=== PATIENT | male | born 1955 | race Caucasian/White ===

== ENCOUNTER 2024-12-26 21:36 | Observation (INO) ==
[2024-12-26 21:59] LABS: BASOPHILS # (AUTO) 0.1 X10^3/uL (0.0-0.1); BASOPHILS % (AUTO) 0.9 % (0.2-1.0); EOSINOPHILS # (AUTO) 0.3 x10^3/uL (0.0-0.2); EOSINOPHILS % (AUTO) 3.5 % (0.9-2.9); HEMATOCRIT 41.9 % (42.0-54.0); HEMOGLOBIN 14.7 g/dL (13.5-18.0); LYMPHOCYTES # (AUTO) 1.8 X10^3/uL (1.3-2.9); LYMPHOCYTES % (AUTO) 24.5 % (21.0-51.0); MEAN CORPUSCULAR HEMOGLOBIN 31.2 pg (27.0-34.0); MEAN CORPUSCULAR HGB CONC 35.2 g/dL (33.0-35.0); MEAN CORPUSCULAR VOLUME 88.8 fL (80.0-100.0); MEAN PLATELET VOLUME 8.5 fL (7.4-11.0); MONOCYTES # (AUTO) 0.7 x10^3/uL (0.3-0.8); MONOCYTES % (AUTO) 9.4 % (0.0-13.0); NEUTROPHILS # (AUTO) 4.5 x10^3/uL (2.2-4.8); NEUTROPHILS % (AUTO) 61.7 % (42.0-75.0); PLATELET COUNT 205 X10^3/uL (150.0-450.0); RED BLOOD COUNT 4.72 X10^6/uL (4.7-6.0); RED CELL DISTRIBUTION WIDTH 13.8 % (11.6-16.5); WHITE BLOOD COUNT 7.3 X10^3/uL (3.6-10.0)
[2024-12-26 22:03] LABS: INR 1.02 (0.8-1.3)
--- NOTE | 2024-12-26 22:10 | TELESTROKE ---
[facility] Consult Date of Consult Date of Exam: 12/26/24 Time of Arrival to the ED: 21:36 Allergies Allergies Allergy/AdvReac Type Severity Reaction Status Date / Time meperidine [From Demerol] Allergy Verified 12/26/24 21:50 History of Present Illness History of Present Illness: [facility] Consult Services Patient Name:BENNETT Dasilva Date of :1955 Date of Service:12/26/2024 21:38:44 Diagnosis:R47.81 - Slurred speech Impression: 69 yo M who presents with confusion, weakness and slurred speech. HCT negative for acute abnormalities. I discussed with family that patient's current symptoms are somewhat nonspecific (confusion without aphasia and slurred speech) but that nurse had noted left side a little weaker than right side earlier. Also having trouble walking. With this, I discussed with them TNK/thrombolytics as possible treatment for patient and after risks/benefits discussion concerning TNK - family and patient have declined medication at this time which I told them is reasonable. Would admit for further workup and hold on restoril (family indicates the symptoms have seemed to come on at night after taking medication). Full recommendations as follows: Our recommendations are outlined below. Recommendations: Stroke/Telemetry Floor Neuro Checks Bedside Swallow Eval -obtain MRI brain w/o contrast and MRA head/neck (routine) --if + for acute stroke = will need full stroke workup (including lipid panel, A1c, TTE, antiplatelets/statin, etc) --allow for permissive HTN up to 180 systolic while MRI brain pending --if MRI negative for stroke = goal of normotension per primary team -cont on asa 81 mg and plavix po qdaily for now -obtain B12, folate, TSH, ammonia -obtain UA, CXR -obtain UDS, Etoh Level -obtain CMP, CBC if not already done -Delirium precautions: Blinds open during the day, closed at night, frequent reorientation, minimize nighttime interruptions -When possible, avoid benzodiazepines, opioid pain medications, and anticholinergic medications (also would avoid restoril) -dvt ppx per primary team -PT/OT/ST consults - inpatient rehab if recommended -call neurology immediately with significant change in exam Sign Out: Discussed with Emergency Department Provider Advanced Imaging:Advanced Imaging Deferred because: NIHSS of 1 only currently Metrics: Last Known Well: 12/26/2024 19:30:00 Dispatch Time: 12/26/2024 21:38:43 Arrival Time: 12/26/2024 21:36:00 Initial Response Time: 12/26/2024 21:47:29Symptoms: confusion, weakness, slurred speech. Initial patient interaction: 12/26/2024 21:50:13 NIHSS Assessment Completed: 12/26/2024 21:58:40Patient is not a candidate for Thrombolytic. Thrombolytic Medical Decision: 12/26/2024 22:00:29Patient was not deemed candidate for Thrombolytic because of following reasons: Patient/Family declined . I personally Reviewed the CT Head and it Showed Primary Provider Notified of Diagnostic Impression and Management Plan on: 12/26/2024 22:07:12 History of Present Illness:Patient is a 69 year old Male. Patient was brought by private transportation with symptoms of confusion, weakness, slurred speech. 69 yo M who presents with confusion, weakness and slurred speech. Per report, patient has had several episodes of confusion with weakness in the last few weeks. Tonight is the worst, confusion/weakness and trouble walking. Walking normally at 730, got confused/weak starting at 830 pm. Brought to ED by family. In ED seemed to be weaker on left side, slurred speech noted and also trouble walking. Patient denies slurred speech - states he doesn't notice it. Does state he has dizziness (started with other symptoms at 830 pm). Denies weakness, numbness. States he is having trouble remembering stuff (his words). Has gotten new glasses and has changed his vision. Denies headache. Past Medical History: Hypertension Hyperlipidemia Coronary Artery Disease There is no history of Diabetes Mellitus There is no history of Atrial Fibrillation There is no history of Stroke Other PMH: hx of prostate cancer Medications: No Anticoagulant use Antiplatelet use:Yesasa and plavix Reviewed EMR for current medications Allergies: Reviewed Social History: Smoking: No Alcohol Use: No Family History: There is no family history of premature cerebrovascular disease pertinent to this consultation ROS : 14 Points Review of Systems was performed and was negative except mentioned in HPI. Examination: BP(137/86),Pulse(62), 1A: Level of Consciousness - Alert; keenly responsive+ 0 1B: Ask Month and Age - Both Questions Right+ 0 1C: Blink Eyes & Squeeze Hands - Performs Both Tasks+ 0 2: Test Horizontal Extraocular Movements - Normal+ 0 3: Test Visual [place] - No Visual Loss+ 0 4: Test Facial Palsy (Use Grimace if Obtunded) - Normal symmetry+ 0 5A: Test Left Arm Motor Drift - No Drift for 10 Seconds+ 0 5B: Test Right Arm Motor Drift - No Drift for 10 Seconds+ 0 6A: Test Left Leg Motor Drift - No Drift for 5 Seconds+ 0 6B: Test Right Leg Motor Drift - No Drift for 5 Seconds+ 0 7: Test Limb Ataxia (FNF/Heel-Ochoa) - No Ataxia+ 0 8: Test Sensation - Normal; No sensory loss+ 0 9: Test Language/Aphasia - Normal; No aphasia+ 0 10: Test Dysarthria - Mild-Moderate Dysarthria: Slurring but can be understood+ 1 11: Test Extinction/Inattention - No abnormality+ 0 NIHSS Score:1 Pre-Morbid Modified Borden Scale:0 Points = No symptoms at all Spoke with :ED physician This consult was conducted in real time using interactive audio and video technology. Patient was informed of the technology being used for this visit and agreed to proceed. Patient located in hospital and provider located at home/office setting. Patient is being evaluated for possible acute neurologic impairment and high probability of imminent or life-threatening deterioration. I spent total of 30 minutes providing care to this patient, including time for face to face visit via telemedicine, review of medical records, imaging studies and discussion of findings with providers, the patient and/or family. Dr Edu Coe [facility] For Inpatient follow-up with [facility] physician please call [facility] at . As we are not an outpatient service for any post hospital discharge needs please contact the hospital for assistance. If you have any questions for the [facility] physicians or need to reconsult for clinical or diagnostic changes please contact us via [facility] at . Medical Decision Making 12/26/24 21:45 12/26/24 21:45 Labs: Laboratory Results - last 24 hr 12/26/24 21:45 WBC 7.3 RBC 4.72 Hgb 14.7 Hct 41.9 L MCV 88.8 MCH 31.2 MCHC 35.2 H RDW 13.8 Plt Count 205 MPV 8.5 Neut % (Auto) 61.7 Lymph % (Auto) 24.5 [place] % (Auto) 9.4 Eos % (Auto) 3.5 H Baso % (Auto) 0.9 Neut # (Auto) 4.5 Lymph # (Auto) 1.8 [place] # (Auto) 0.7 Eos # (Auto) 0.3 H Baso # (Auto) 0.1 Absolute Nucleated RBC 0.2
--- NOTE | 2024-12-26 22:15 | EKG ---
Test Reason : AMS Blood Pressure : */* mmHG Vent. Rate : 63 BPM Atrial Rate : 63 BPM P-R Int : 174 ms QRS Dur : 84 ms QT Int : 410 ms P-R-T Axes : 58 23 48 degrees QTc Int : 419 ms Normal sinus rhythm Normal ECG No previous ECGs available Confirmed by Justo Reynolds MD ([id number]) on 12/27/2024 5:56:38 AM Referred By: Confirmed By: Justo Reynolds MD
[2024-12-26 22:19] LABS: ALANINE AMINOTRANSFERASE 26 Units/L (12-78); ALBUMIN 3.9 g/dL (3.4-5.0); ALKALINE PHOSPHATASE 91 Units/L (46-116); ASPARTATE AMINO TRANSFERASE 17 Units/L (15-37); BLOOD UREA NITROGEN 17 mg/dL (7-18); CALCIUM 9.4 mg/dL (8.5-10.1); CARBON DIOXIDE 30.4 mmol/L (21-32); CHLORIDE 101 mmol/L (98-107); CHOL/HDL RATIO 3.2 (0.0-5.0); CHOLESTEROL 105 mg/dL (0-200); COR NA(FOR HYPERGLY) 141 mmol/L (136-145); CREATINE KINASE 89 Units/L (39-308); GLUCOSE 120 mg/dL (65-99); HDL CHOLESTEROL 33 mg/dL (40-60); POTASSIUM 3.7 mmol/L (3.5-5.1); SODIUM 141 mmol/L (136-145); TOTAL PROTEIN 7.5 g/dL (6.4-8.2); TRIGLYCERIDES 370 mg/dL (0-150); eGFR NON BLACK RACES 49 (>60)
--- NOTE | 2024-12-26 22:37 | CT ---
EXAM: BRAIN W/O CON HISTORY: AMS; COMPARISON: None. TECHNIQUE: Axial non-contrast images of the head with coronal and sagittal reformats. Radiation dose: 841.24 mGy-cm total DLP FINDINGS: No abnormal areas of acute attenuation in the brain parenchyma. Urbano-white differentiation remains intact. No intracranial, extra-axial, fluid collection. No hemorrhage. No mass, mass effect or midline shift. No ventriculomegaly. No acute fracture. Sinuses are well aerated. Mastoid air cells are well aerated. Globes and intraorbital contents are unremarkable. IMPRESSION: No acute intracranial abnormality identified. THIS IS AN ELECTRONICALLY VERIFIED FINAL REPORT 12/26/2024 10:21 PM - Electronically signed by Jonh Keith MD
[2024-12-26 22:43] LABS: BILIRUBIN,URINE NEGATIVE (NEGATIVE); BLOOD/HEMOGLOBIN,URINE 3+ (NEGATIVE); GLUCOSE, URINE NEGATIVE (NEGATIVE); KETONES,URINE NEGATIVE (NEGATIVE); LEUKOCYTE ESTERASE ,URINE 1+ (NEGATIVE); NITRITES,URINE NEGATIVE (NEGATIVE); PROTEIN,URINE 1+ (NEGATIVE); UROBILINOGEN,URINE NORMAL (NORMAL)
[2024-12-26 22:51] LABS: APPEARANCE,URINE CLEAR (CLEAR); COLOR,URINE YELLOW (YELLOW)
[2024-12-26 22:52] LABS: BACTERIA,URINE TRACE /HPF (NEGATIVE); SQUAMOUS EPITHELIAL CELL,UR RARE /HPF (NEGATIVE); YEAST,URINE RARE /HPF (NEGATIVE)
--- NOTE | 2024-12-27 | RAD ---
EXAM: CHEST, 1 VIEW HISTORY: AMS; COMPARISON: No relevant prior studies available. TECHNIQUE: Chest radiographic imaging, AP portable projection, 1 image FINDINGS: No cardiomegaly. No focal airspace disease. No pleural effusion. No pneumothorax. No acute osseous abnormality. IMPRESSION: No imaging findings of acute cardiopulmonary disease. THIS IS AN ELECTRONICALLY VERIFIED FINAL REPORT 12/26/2024 11:57 PM - Electronically signed by Jonh Keith MD
--- NOTE | 2024-12-27 00:33 | DR.AMS ---
HPI Time Seen Time Seen by Provider: 12/26/24 22:07 HPI Comment HPI Comment: Patient brought in for altered mental status and slurred speech. Patient had taken temazepam on an empty stomach for sleep and after 20 to 30 minutes started getting a little bit of slurred speech and a little bit of confusion. Patient was evaluated by teleneurology and no acute stroke was found. PMH PMH Past Medical History: Coronary Artery Disease and Hypertension Past Surgical History: Yes Social History Do you use any recreational Drugs:: No ROS Review of Systems Constitutional: No Symptoms Reported Eyes: No Symptoms Reported ENTM: No Symptoms Reported Respiratoy: No Symptoms Reported Cardiovascular: No Symptoms Reported Gastrointestinal/Abdominal: No Symptoms Reported Genitourinary: No Symptoms Reported Neurological: See HPI and Speech Problem Musculoskeletal: No Symptoms Reported Integumentary: No Symptoms Reported Hematologic/Lymphatic: No Symptoms Reported Endocrine: No Symptoms Reported Psychiatric: No Symptoms Reported All Other Systems: Reviewed and Negative PE Vitals Vital Signs: Temp Pulse Resp BP Pulse Ox 12/27/24 00:30 126/72 12/27/24 00:30 54 L 15 97 12/27/24 00:15 126/67 12/27/24 00:15 53 L 15 98 12/27/24 00:09 55 L 14 97 12/27/24 00:00 127/67 12/26/24 23:58 53 L 15 97 12/26/24 23:45 55 L 17 97 12/26/24 23:45 129/70 12/26/24 23:30 129/65 12/26/24 23:30 129/65 12/26/24 23:30 129/65 12/26/24 23:30 55 L 13 96 12/26/24 23:15 141/76 12/26/24 23:15 55 L 15 97 12/26/24 23:00 139/76 12/26/24 23:00 59 L 20 97 12/26/24 22:45 58 L 16 96 12/26/24 22:33 65 18 97 12/26/24 22:15 61 17 12/26/24 22:11 63 24 12/26/24 21:46 63 20 97 12/26/24 21:46 143/99 12/26/24 21:46 143/99 12/26/24 21:46 143/99 12/26/24 21:45 64 18 97 12/26/24 21:40 65 21 12/26/24 21:36 147/72 12/26/24 21:36 147/72 12/26/24 22:09 98.0 F 68 20 147/ 98 General Limitations: Language Barrier General Appearance: Alert Head Head Exam: Normal Inspection Eyes Eye exam: Normal Appearance ENT ENT Exam: Normal Exam External Ear Exam: Normal External Inspection Nose Exam: Normal Nose Exam Mouth Exam: Normal Inspection Throat Exam: Normal Inspection Neck Neck Exam: Normal Inspection Chest Chest Inspection: Normal Inspection Respiratory Respiratory Exam: Normal Lung Sounds Bilat Cardiovascular Cardiovascular Exam: Regular Rate and Normal Rhythm Abdominal Exam Abdominal Exam: Normal Inspection, Normal Bowel Sounds and Soft Extremities Extremities Exam: Normal Inspection Back Back Exam: Normal Inspection Neurological Neurological Exam: Alert, CN II-XII Intact, Reflexes Normal and Other (Slightly confused with slightly slurred speech which improved through the night.); negative Motor Sensory Deficit Psychological Psychiatric Exam: Normal Affect and Normal Mood Skin Skin Exam: Warm, Dry, Intact and Normal Color COURSE Treatment Treatment: CT scan was negative. Chest x-ray negative. At this point suspect most likely side effect from temazepam. Teleneurology recommended MRI in the morning. Discussed results with patient and family and they are agreeable to admission. Consultation Called: 00:36 Consultation Comments: Discussed case with Dr. Coe from teleneurology. He recommends MRI and MRA in the morning. Discussed case with Dr. Greenwood she is agreeable to admission. [facility] Labs Reviewed 12/26/24 21:45 12/26/24 21:45 Laboratory: WBC 7.3 X10^3/uL (3.6-10.0) 12/26/24 21:45 RBC 4.72 X10^6/uL (4.7-6.0) 12/26/24 21:45 Hgb 14.7 g/dL (13.5-18.0) 12/26/24 21:45 Hct 41.9 % (42.0-54.0) L 12/26/24 21:45 MCV 88.8 fL (80.0-100.0) 12/26/24 21:45 MCH 31.2 pg (27.0-34.0) 12/26/24 21:45 MCHC 35.2 g/dL (33.0-35.0) H 12/26/24 21:45 RDW 13.8 % (11.6-16.5) 12/26/24 21:45 Plt Count 205 X10^3/uL (150.0-450.0) 12/26/24 21:45 MPV 8.5 fL (7.4-11.0) 12/26/24 21:45 Neut % (Auto) 61.7 % (42.0-75.0) 12/26/24 21:45 Lymph % (Auto) 24.5 % (21.0-51.0) 12/26/24 21:45 [place] % (Auto) 9.4 % (0.0-13.0) 12/26/24 21:45 Eos % (Auto) 3.5 % (0.9-2.9) H 12/26/24 21:45 Baso % (Auto) 0.9 % (0.2-1.0) 12/26/24 21:45 Neut # (Auto) 4.5 x10^3/uL (2.2-4.8) 12/26/24 21:45 Lymph # (Auto) 1.8 X10^3/uL (1.3-2.9) 12/26/24 21:45 [place] # (Auto) 0.7 x10^3/uL (0.3-0.8) 12/26/24 21:45 Eos # (Auto) 0.3 x10^3/uL (0.0-0.2) H 12/26/24 21:45 Baso # (Auto) 0.1 X10^3/uL (0.0-0.1) 12/26/24 21:45 Absolute Nucleated RBC 0.2 /100WBC 12/26/24 21:45 PT 13.6 SECONDS (11.8-14.3) 12/26/24 21:45 INR Target Range - 12/26/24 21:45 INR 1.02 (0.8-1.3) 12/26/24 21:45 APTT 31.5 SECONDS (22.9-36.5) 12/26/24 21:45 PTT Comment - 12/26/24 21:45 Fibrinogen 389 mg/dL (239-489) 12/26/24 21:45 Sodium 141 mmol/L (136-145) 12/26/24 21:45 Corrected Sodium 141 mmol/L (136-145) 12/26/24 21:45 Potassium 3.7 mmol/L (3.5-5.1) 12/26/24 21:45 Chloride 101 mmol/L (98-107) 12/26/24 21:45 Carbon Dioxide 30.4 mmol/L (21-32) 12/26/24 21:45 BUN 17 mg/dL (7-18) 12/26/24 21:45 Creatinine 1.50 mg/dL (0.70-1.30) H 12/26/24 21:45 Est GFR (MDRD) Af Amer 59 (>60) 12/26/24 21:45 Est GFR (MDRD) Non-Af 49 (>60) L 12/26/24 21:45 Glucose 120 mg/dL (65-99) H 12/26/24 21:45 Calcium 9.4 mg/dL (8.5-10.1) 12/26/24 21:45 Corrected Calcium TNP 12/26/24 21:45 Total Bilirubin 0.30 mg/dL (0.2-1.0) 12/26/24 21:45 AST 17 Units/L (15-37) 12/26/24 21:45 ALT 26 Units/L (12-78) 12/26/24 21:45 Alkaline Phosphatase 91 Units/L (46-116) 12/26/24 21:45 Creatine Kinase 89 Units/L (39-308) 12/26/24 21:45 Troponin I High Sens 4.0 ng/L (4.0-60.0) 12/26/24 23:43 Total Protein 7.5 g/dL (6.4-8.2) 12/26/24 21:45 Albumin 3.9 g/dL (3.4-5.0) 12/26/24 21:45 Globulin 3.6 g/dL (2.5-4.5) 12/26/24 21:45 Albumin/Globulin Ratio 1.1 Ratio (1.1-2.1) 12/26/24 21:45 Triglycerides 370 mg/dL (0-150) H 12/26/24 21:45 Cholesterol 105 mg/dL (0-200) 12/26/24 21:45 LDL Cholesterol, Calc -2 mg/dL (0-100) L 12/26/24 21:45 HDL Cholesterol 33 mg/dL (40-60) L 12/26/24 21: Cholesterol/HDL Ratio 3.2 (0.0-5.0) 12/26/24 21:45 Specimen Type Clean catch urine 12/26/24: Urine Color Yellow (YELLOW) 12/26/24: Urine Appearance Clear (CLEAR) 12/26/24: Urine pH 6.0 (5.0 - 8.0) 12/26/24: Ur Specific Horace 1.020 (1.000-1.030) 12/26/24: Urine Protein 1+ (NEGATIVE) 12/26/24: Urine Glucose (UA) Negative (NEGATIVE) 12/26/24: Urine Ketones Negative (NEGATIVE) 12/26/24: Urine Blood 3+ (NEGATIVE) 12/26/24: Urine Nitrite Negative (NEGATIVE) 12/26/24: Urine Bilirubin Negative (NEGATIVE) 12/26/24: Urine Urobilinogen Normal (NORMAL) 12/26/24: Ur Leukocyte Esterase 1+ (NEGATIVE) 12/26/24: Urine RBC 5-10 /HPF (0-3) A 12/26/24: Urine WBC 3-5 /HPF (0-5) 12/26/24: Ur Squamous Epith Cells Rare /HPF (NEGATIVE) 12/26/24: Urine Bacteria Trace /HPF (NEGATIVE) 12/26/24: Urine Yeast Rare /HPF (NEGATIVE) 12/26/24: Ur Culture Indicated? No/not indicated 12/26/24: Urine Opiates Screen Negative (NEG=<300) 12/26/24: Urine Methadone Screen Negative (NEG=<300) 12/26/24: Ur Barbiturates Screen Negative (NEG=<200) 12/26/24: Ur Phencyclidine Scrn Negative (NEG=<25) 12/26/24: Ur Amphetamines Screen Negative (NEG=<1000) 12/26/24: U Benzodiazepines Scrn Positive (NEG=<200) 04/17/25 22:34 Urine Cocaine Screen Negative (NEG=<300) 12/26/24 22:34 U Marijuana (THC) Screen Negative (NEG=<50) 12/26/24 22:34 Ethyl Alcohol mg/dL < 3 mg/dL (0-19.9) 12/26/24 21:45 Opioid Opioid Risk Tool Total: 0 Total Score Risk Category: Low Risk Copyright: [facility] predicting aberrant behaviors Discharge Plan Diagnosis Discharge Problem: Stroke-like symptom, Slurred speech, AMS (altered mental status) Discharge Plan Patient Disposition: ADMITTED INPATIENT Condition: Stable Prescriptions: No Action furosemide 40 mg Tablet 40 mg PO QDAY carvedilol 6.25 mg Tablet 6.25 mg PO BID Rx Instructions: must administer with a meal/food polyethylene glycol 3350 [Miralax] 17 gram Powder In Packet 17 g PO QDAY clopidogrel [Plavix] 75 mg Tablet 75 mg PO QDAY aspirin 81 mg Tablet,Delayed Release (Dr/Ec) 81 mg PO QDAY levothyroxine [Synthroid] 100 mcg Tablet 100 mcg PO QDAY famotidine [Pepcid] 20 mg Tablet 20 mg PO BID temazepam [Restoril] 30 mg Capsule 30 mg PO QHS PRN metformin 1,000 mg Tablet 1,000 mg PO BID losartan 25 mg Tablet 50 mg PO QPM ranolazine [Ranexa] 500 mg Tablet Extended Release 12 Hr 500 mg PO BID omega-3 fatty acids-fish oil [Fish Oil] 360-1,200 mg Capsule 2 cap PO QDAY potassium chloride 20 mEq Tablet Extended Release 20 meq PO QDAY Repatha SureClick 140 mg/mL Pen Injector 140 mg SUBCUT Q2W Health Concerns: Post Hospitalization: new medications and changes needed to prevent readmission or further decline. Pt educated and given instructions on all concerns. Plan of Treatment: Continue with present treatment and follow up plan. Pt is to keep follow up appointment as instructed and take medications as ordered. Orders to Discharge Patient Discharge Orders: Transfer (Routine); Ordered 12/27/24 Ordered By: Hiren Andrea Follow ups/Referrals Follow ups/Referrals: Tom Hunt [Primary Care Provider] - 3 days Instructions Stand Alone Forms: Find Help Web Site, Post Hospital Follow Up Care
[2024-12-27] MEDS ORDERED: CONSULT PHARMACY - POTASSIUM & MAGNESIUM XX SCH ×2 (01:00→08:00)
[2024-12-27] MEDS: K-DUR TAB 20 MEQ PO SCH ×2 (01:19→11:05)
[2024-12-27 02:16] VITALS: BMI 29.0
[2024-12-27 04:42] LABS: BASOPHILS % (AUTO) 0.3 % (0.2-1.0); EOSINOPHILS # (AUTO) 0.2 x10^3/uL (0.0-0.2); EOSINOPHILS % (AUTO) 3.4 % (0.9-2.9); HEMATOCRIT 39.3 % (42.0-54.0); HEMOGLOBIN 13.8 g/dL (13.5-18.0); LYMPHOCYTES # (AUTO) 1.8 X10^3/uL (1.3-2.9); LYMPHOCYTES % (AUTO) 28.2 % (21.0-51.0); MEAN CORPUSCULAR HEMOGLOBIN 31.2 pg (27.0-34.0); MEAN CORPUSCULAR HGB CONC 35.1 g/dL (33.0-35.0); MEAN CORPUSCULAR VOLUME 88.8 fL (80.0-100.0); MEAN PLATELET VOLUME 8.7 fL (7.4-11.0); MONOCYTES # (AUTO) 0.7 x10^3/uL (0.3-0.8); MONOCYTES % (AUTO) 11.7 % (0.0-13.0); NEUTROPHILS # (AUTO) 3.5 x10^3/uL (2.2-4.8); NEUTROPHILS % (AUTO) 56.4 % (42.0-75.0); PLATELET COUNT 185 X10^3/uL (150.0-450.0); RED BLOOD COUNT 4.42 X10^6/uL (4.7-6.0); RED CELL DISTRIBUTION WIDTH 13.8 % (11.6-16.5); WHITE BLOOD COUNT 6.3 X10^3/uL (3.6-10.0)
[2024-12-27 05:02] LABS: ALANINE AMINOTRANSFERASE 24 Units/L (12-78); ALBUMIN 3.4 g/dL (3.4-5.0); ALKALINE PHOSPHATASE 69 Units/L (46-116); ASPARTATE AMINO TRANSFERASE 15 Units/L (15-37); BLOOD UREA NITROGEN 21 mg/dL (7-18); CALCIUM 9.2 mg/dL (8.5-10.1); CARBON DIOXIDE 29.9 mmol/L (21-32); CHLORIDE 103 mmol/L (98-107); CREATININE 1.28 mg/dL (0.70-1.30); GLUCOSE 101 mg/dL (65-99); MAGNESIUM 1.9 mg/dL (2.0-2.9); POTASSIUM 4.2 mmol/L (3.5-5.1); SODIUM 140 mmol/L (136-145); TOTAL PROTEIN 6.8 g/dL (6.4-8.2); eGFR NON BLACK RACES 59 (>60)
[2024-12-27] MEDS ORDERED: NovoLIN R (or HumuLIN R) SUBCUT PRN (10:33)
[2024-12-27] MEDS ORDERED: GLUCOPHAGE ONE (10:40)
[2024-12-27] MEDS: GLUCOPHAGE PO SCH (11:05)
[2024-12-27] MEDS: PEPCID TAB 20 MG PO SCH (11:05)
[2024-12-27] MEDS: LASIX PO SCH (11:05)
[2024-12-27] MEDS: MAG-OX TAB PO SCH (11:05)
[2024-12-27] MEDS: ASPIRIN EC 81 MG PO SCH (11:05)
[2024-12-27] MEDS: MIRALAX POWDER (1 DOSE 17 G) PO SCH (11:05)
[2024-12-27] MEDS: SYNTHROID 100 mcg TAB PO SCH (11:06)
[2024-12-27] MEDS: COREG TAB 6.25 MG PO SCH (11:06)
[2024-12-27] MEDS: PLAVIX PO SCH (11:06)
[2024-12-27 12:51] LABS: BILIRUBIN,URINE NEGATIVE (NEGATIVE); BLOOD/HEMOGLOBIN,URINE 2+ (NEGATIVE); GLUCOSE, URINE NEGATIVE (NEGATIVE); KETONES,URINE NEGATIVE (NEGATIVE); LEUKOCYTE ESTERASE ,URINE 1+ (NEGATIVE); NITRITES,URINE NEGATIVE (NEGATIVE); PROTEIN,URINE NEGATIVE (NEGATIVE); UROBILINOGEN,URINE NORMAL (NORMAL)
[2024-12-27 12:56] VITALS: BP 174/77; PULSE 62; RESP 20; TEMP 97.8; O2SAT 96
[2024-12-27 12:58] LABS: APPEARANCE,URINE CLEAR (CLEAR); COLOR,URINE STRAW (YELLOW)
[2024-12-27 12:59] LABS: BACTERIA,URINE NEGATIVE /HPF (NEGATIVE); RBC,URINE 0-2 /HPF (0-3); SQUAMOUS EPITHELIAL CELL,UR RARE /HPF (NEGATIVE)
--- NOTE | 2024-12-27 13:18 | MRI ---
EXAM: MRI BRAIN WITHOUT CONTRAST HISTORY: AMS ; COMPARISON: CT dated 12/26/2024. TECHNIQUE: Multiplanar multisequence MRI of the brain was performed without intravenous contrast. FINDINGS: No areas of restricted diffusion. No acute intracranial hemorrhage or extra-axial fluid collection. No mass effect or midline shift. Mild cerebral atrophy. Normal cortical and white matter signal. Major intracranial flow voids are preserved. Mild paranasal sinus mucosal thickening. Trace right mastoid effusion. IMPRESSION: No acute intracranial abnormality. THIS IS AN ELECTRONICALLY VERIFIED FINAL REPORT 12/27/2024 1:15 PM - Electronically signed by Juan Blanchard MD
[2024-12-27] MEDS ORDERED: SNACK - Diabetic Appropriate PO SCH (20:00)
[2024-12-27] MEDS ORDERED: COZAAR PO SCH (21:00)
[2024-12-27] MEDS ORDERED: RANEXA PO SCH (21:00)
[2024-12-27] MEDS ORDERED: RESTORIL CAP 15 MG PO PRN (21:00)
--- NOTE | 2025-01-06 08:10 | DR.SSS ---
SHORT STAY SUMMARY Admission Date Date of Admission: 12/26/24 Discharge Date Discharge Date: 12/27/24 Admission Diagnoses Admission Diagnoses: Altered mental status Chief Complaint Chief Complaint: altered mental status slurred speech History of Present Illness History of Present Illness: Patient is a 69 year old male admitted for altered mental status, confusion, and slurred speech. Patient did take a temazepam on an empty stomach and then was noted to have slurred speech and a little bit of confusion. Patient was evaluated by teleneurology and no acute stroke was found. Labs/imaging: CT head was obtained that was negative for any intracranial findings. Chest x-ray negative. Labs appropriate, UDS positive benzodiazepine. Patient symptoms had resolved. On exam patient back to baseline without any complaints. Alert and oriented. No neurological deficits. Symptoms likely from temazepam. Teleneurology recommended MRI that was also negative. Patient discharged in stable condition. Instructed to follow up with pcp in 1 week. Past Medical History Past Medical History: Coronary Artery Disease and Hypertension Past Surgical History Surgical History: Angioplasty/Stents, Thyroidectomy and Other Allergies Allergies Allergy/AdvReac Type Severity Reaction Status Date / Time meperidine [From Demerol] Allergy Verified 12/26/24 21:50 Medications Home Medications: meperidine [From Demerol] Allergy (Verified 12/26/24 21:50) CONTINUE taking the following medications aspirin 81 mg tablet,delayed release 81 mg PO QDAY 12/26/24 [History] carvedilol 6.25 mg tablet 6.25 mg PO BID 12/26/24 [History] clopidogrel 75 mg tablet (Plavix) 75 mg PO QDAY 12/26/24 [History] evolocumab 140 mg/mL subcutaneous pen injector (Repatha SureClick) 140 mg subcut Q2W 12/26/24 [History] famotidine 20 mg tablet (Pepcid) 20 mg PO BID 12/26/24 [History] furosemide 40 mg tablet 40 mg PO QDAY 12/26/24 [History] levothyroxine 100 mcg tablet (Synthroid) 100 mcg PO QDAY 12/26/24 [History] losartan 25 mg tablet 50 mg PO QPM 12/26/24 [History] metformin 1,000 mg tablet 1,000 mg PO BID 12/26/24 [History] omega-3 fatty acids-fish oil 360 mg-1,200 mg capsule (Fish Oil) 2 cap PO QDAY 12/26/24 [History] polyethylene glycol 3350 17 gram oral powder packet (Miralax) 17 g PO QDAY 12/26/24 [History] potassium chloride 20 mEq tablet,extended release 20 meq PO QDAY 12/26/24 [History] ranolazine 500 mg tablet,extended release,12 hr 500 mg PO BID 12/26/24 [History] temazepam 30 mg capsule (Restoril) 30 mg PO QHS PRN 12/26/24 [History] Social History Alcohol Use: None Drug Use: None Review of Systems Constitutional: No Symptoms Reported Eyes: No Symptoms Reported ENT: No Symptoms Reported Respiratory: No Symptoms Reported Cardiovascular: No Symptoms Reported Gastrointestinal: No Symptoms Reported Genitourinary: No Symptoms Reported Musculoskeletal: No Symptoms Reported Skin: No Symptoms Reported Neurological: Change in Speech Physical Exam Vital Signs: Last Vital Signs Temp 97.8 F 12/27/24 12:00 Pulse 62 12/27/24 12:00 Resp 20 12/27/24 12:00 BP 174/77 12/27/24 12:00 Pulse Ox 96 12/27/24 12:00 O2 Del Method Room Air 12/27/24 12:00 Oriented: Normal Eyes: Normal Ear: Normal Nose: Normal Respiratory: Clear Throughout Cardiovascular: Normal : Normal Auscultation: Bowel Sounds: Normal Palpation: Normal Tenderness: Normal Skin: Normal Musculoskeletal: Normal Psychiatric: Normal Mood Description: Calm Affect: Normal Speech Pattern: Clear Labs Labs: Laboratory Last Values WBC 6.3 X10^3/uL (3.6-10.0) 12/27/24 04:10 RBC 4.42 X10^6/uL (4.7-6.0) L 12/27/24 04:10 Hgb 13.8 g/dL (13.5-18.0) 12/27/24 04:10 Hct 39.3 % (42.0-54.0) L 12/27/24 04:10 MCV 88.8 fL (80.0-100.0) 12/27/24 04:10 MCH 31.2 pg (27.0-34.0) 12/27/24 04:10 MCHC 35.1 g/dL (33.0-35.0) H 12/27/24 04:10 RDW 13.8 % (11.6-16.5) 12/27/24 04:10 Plt Count 185 X10^3/uL (150.0-450.0) 12/27/24 04:10 MPV 8.7 fL (7.4-11.0) 12/27/24 04:10 Neut % (Auto) 56.4 % (42.0-75.0) 12/27/24 04:10 Lymph % (Auto) 28.2 % (21.0-51.0) 12/27/24 04:10 [place] % (Auto) 11.7 % (0.0-13.0) 12/27/24 04:10 Eos % (Auto) 3.4 % (0.9-2.9) H 12/27/24 04:10 Baso % (Auto) 0.3 % (0.2-1.0) 12/27/24 04:10 Neut # (Auto) 3.5 x10^3/uL (2.2-4.8) 12/27/24 04:10 Lymph # (Auto) 1.8 X10^3/uL (1.3-2.9) 12/27/24 04:10 [place] # (Auto) 0.7 x10^3/uL (0.3-0.8) 12/27/24 04:10 Eos # (Auto) 0.2 x10^3/uL (0.0-0.2) 12/27/24 04:10 Baso # (Auto) 0.0 X10^3/uL (0.0-0.1) 12/27/24 04:10 Absolute Nucleated RBC 0.0 /100WBC 12/27/24 04:10 PT 13.6 SECONDS (11.8-14.3) 12/26/24 21:45 INR Target Range - 12/26/24 21:45 INR 1.02 (0.8-1.3) 12/26/24 21:45 APTT 31.5 SECONDS (22.9-36.5) 12/26/24 21:45 PTT Comment - 12/26/24 21:45 Fibrinogen 389 mg/dL (239-489) 12/26/24 21:45 Sodium 140 mmol/L (136-145) 12/27/24 04:10 Corrected Sodium TNP 12/27/24 04:10 Potassium 4.2 mmol/L (3.5-5.1) 12/27/24 04:10 Chloride 103 mmol/L (98-107) 12/27/24 04:10 Carbon Dioxide 29.9 mmol/L (21-32) 12/27/24 04:10 BUN 21 mg/dL (7-18) H 12/27/24 04:10 Creatinine 1.28 mg/dL (0.70-1.30) 12/27/24 04:10 Est GFR (MDRD) Af Amer > 60 (>60) 12/27/24 04:10 Est GFR (MDRD) Non-Af 59 (>60) 12/27/24 04:10 Glucose 101 mg/dL (65-99) H 12/27/24 04:10 POC Glucose (mg/dL) 105 mg/dL (65-99) H 12/27/24 11:11 Calcium 9.2 mg/dL (8.5-10.1) 12/27/24 04:10 Corrected Calcium TNP 12/27/24 04:10 Magnesium 1.9 mg/dL (2.0-2.9) L 12/27/24 04:10 Magnesium Cancelled 12/27/24 04:10 Total Bilirubin 0.40 mg/dL (0.2-1.0) 12/27/24 04:10 AST 15 Units/L (15-37) 12/27/24 04:10 ALT 24 Units/L (12-78) 12/27/24 04:10 Alkaline Phosphatase 69 Units/L (46-116) 12/27/24 04:10 Creatine Kinase 89 Units/L (39-308) 12/26/24 21:45 Troponin I High Sens 4.0 ng/L (4.0-60.0) 12/26/24 23:43 Total Protein 6.8 g/dL (6.4-8.2) 12/27/24 04:10 Albumin 3.4 g/dL (3.4-5.0) 12/27/24 04:10 Globulin 3.4 g/dL (2.5-4.5) 12/27/24 04:10 Albumin/Globulin Ratio 1.0 Ratio (1.1-2.1) L 12/27/24 04:10 Triglycerides 370 mg/dL (0-150) H 12/26/24 21:45 Cholesterol 105 mg/dL (0-200) 12/26/24 21:45 LDL Cholesterol, Calc -2 mg/dL (0-100) L 12/26/24 21:45 HDL Cholesterol 33 mg/dL (40-60) L 12/26/24 21:45 Cholesterol/HDL Ratio 3.2 (0.0-5.0) 12/26/24 21:45 Specimen Type Clean catch urine 12/27/24 12:30 Urine Color Straw (YELLOW) 12/27/24 12:30 Urine Appearance Clear (CLEAR) 12/27/24 12:30 Urine pH 7.0 (5.0 - 8.0) 12/27/24 12:30 Ur Specific [place] 1.010 (1.000-1.030) 12/27/24 12:30 Urine Protein Negative (NEGATIVE) 12/27/24 12:30 Urine Glucose (UA) Negative (NEGATIVE) 12/27/24 12:30 Urine Ketones Negative (NEGATIVE) 12/27/24 12:30 Urine Blood 2+ (NEGATIVE) 12/27/24 12:30 Urine Nitrite Negative (NEGATIVE) 12/27/24 12:30 Urine Bilirubin Negative (NEGATIVE) 12/27/24 12:30 Urine Urobilinogen Normal (NORMAL) 12/27/24 12:30 Ur Leukocyte Esterase 1+ (NEGATIVE) 12/27/24 12:30 Urine RBC 0-2 /HPF (0-3) 12/27/24 12:30 Urine WBC 0-2 /HPF (0-5) 12/27/24 12:30 Ur Squamous Epith Cells Rare /HPF (NEGATIVE) 12/27/24 12:30 Urine Bacteria Negative /HPF (NEGATIVE) 12/27/24 12:30 Urine Yeast Rare /HPF (NEGATIVE) 12/26/24 22:34 Ur Culture Indicated? No/not indicated 12/27/24 12:30 Urine Opiates Screen Negative (NEG=<300) 12/26/24 22:34 Urine Methadone Screen Negative (NEG=<300) 12/26/24 22:34 Ur Barbiturates Screen Negative (NEG=<200) 12/26/24 22:34 Ur Phencyclidine Scrn Negative (NEG=<25) 12/26/24 22:34 Ur Amphetamines Screen Negative (NEG=<1000) 12/26/24 22:34 U Benzodiazepines Scrn Positive (NEG=<200) 12/26/24 22:34 Urine Cocaine Screen Negative (NEG=<300) 12/26/24 22:34 U Marijuana (THC) Screen Negative (NEG=<50) 12/26/24 22:34 Ethyl Alcohol mg/dL < 3 mg/dL (0-19.9) 12/26/24 21:45 Assessment/Plan (1) AMS (altered mental status): (2) Stroke-like symptom: (3) Slurred speech: Hospital Course Hospital Course: Patient is a 69 year old male admitted for altered mental status, confusion, and slurred speech. Patient did take a temazepam on an empty stomach and then was noted to have slurred speech and a little bit of confusion. Patient was evaluated by teleneurology and no acute stroke was found. Labs/imaging: CT head was obtained that was negative for any intracranial findings. Chest x-ray negative. Labs appropriate, UDS positive benzodiazepine. Patient symptoms had resolved. On exam patient back to baseline without any complaints. Alert and oriented. No neurological deficits. Symptoms likely from temazepam. Teleneurology recommended MRI that was also negative. Patient discharged in stable condition. Instructed to follow up with pcp in 1 week. Discharge Medications Discharge Medications: Home Medication List aspirin 81 mg tablet,delayed release 81 mg PO QDAY 12/26/24 [History] carvedilol 6.25 mg tablet 6.25 mg PO BID 12/26/24 [History] clopidogrel 75 mg tablet (Plavix) 75 mg PO QDAY 12/26/24 [History] evolocumab 140 mg/mL subcutaneous pen injector (Repatha SureClick) 140 mg subcut Q2W 12/26/24 [History] famotidine 20 mg tablet (Pepcid) 20 mg PO BID 12/26/24 [History] furosemide 40 mg tablet 40 mg PO QDAY 12/26/24 [History] levothyroxine 100 mcg tablet (Synthroid) 100 mcg PO QDAY 12/26/24 [History] losartan 25 mg tablet 50 mg PO QPM 12/26/24 [History] metformin 1,000 mg tablet 1,000 mg PO BID 12/26/24 [History] omega-3 fatty acids-fish oil 360 mg-1,200 mg capsule (Fish Oil) 2 cap PO QDAY 12/26/24 [History] polyethylene glycol 3350 17 gram oral powder packet (Miralax) 17 g PO QDAY 12/26/24 [History] potassium chloride 20 mEq tablet,extended release 20 meq PO QDAY 12/26/24 [History] ranolazine 500 mg tablet,extended release,12 hr 500 mg PO BID 12/26/24 [History] temazepam 30 mg capsule (Restoril) 30 mg PO QHS PRN 12/26/24 [History] Prescriptions: Discharge Plan Discharge Plan Patient Disposition: 01 HOME, SELF-CARE Condition: Stable Health Concerns: Post Hospitalization: new medications and changes needed to prevent readmission or further decline. Pt educated and given instructions on all concerns. Care Plan Goals: Problem: Alteration in Mental Status Goal: Patient will stay oriented to their cognitive ability Instructions: Follow provided instructions. Follow up with primary physician as directed. Contact primary care physician or report to the closest Emergency Room if condition worsens. Plan of Treatment: Continue with present treatment and follow up plan. Pt is to keep follow up appointment as instructed and take medications as ordered. Prescriptions: Continued furosemide 40 mg Tablet 40 mg PO QDAY carvedilol 6.25 mg Tablet 6.25 mg PO BID Rx Instructions: must administer with a meal/food polyethylene glycol 3350 [Miralax] 17 gram Powder In Packet 17 g PO QDAY clopidogrel [Plavix] 75 mg Tablet 75 mg PO QDAY aspirin 81 mg Tablet,Delayed Release (Dr/Ec) 81 mg PO QDAY levothyroxine [Synthroid] 100 mcg Tablet 100 mcg PO QDAY famotidine [Pepcid] 20 mg Tablet 20 mg PO BID temazepam [Restoril] 30 mg Capsule 30 mg PO QHS PRN metformin 1,000 mg Tablet 1,000 mg PO BID losartan 25 mg Tablet 50 mg PO QPM ranolazine 500 mg Tablet Extended Release 12 Hr 500 mg PO BID omega-3 fatty acids-fish oil [Fish Oil] 360-1,200 mg Capsule 2 cap PO QDAY potassium chloride 20 mEq Tablet Extended Release 20 meq PO QDAY Repatha SureClick 140 mg/mL Pen Injector 140 mg SUBCUT Q2W Orders to Discharge Patient Discharge Orders: Discharge (Routine); Ordered 12/27/24 Ordered By: Maci Greenwood Follow ups/Referrals Follow ups/Referrals: JF TOWNSEND [Nurse Practitioner] - 1 WEEK (Office closed for Good Monday Call office on Monday and schedule a 1 week follow up) Instructions Instructions: Stroke Prevention, [id number], Transient Ischemic Attack, [id number], Warning Signs of a Stroke Stand Alone Forms: Find Help Web Site, Post Hospital Follow Up Care
== END 2024-12-27 13:50 | disposition home or self-care (01) ==
LOC: ER 21:36 → MED/SURG 21:36
PROVIDERS: ADMIT Internal Medicine; ATTEND Internal Medicine
DX: I25.10 Atherosclerotic heart disease of native coronary artery without angina pectoris; R29.90 Unspecified symptoms and signs involving the nervous system; R29.818 Other symptoms and signs involving the nervous system; E78.5 Hyperlipidemia, unspecified; R41.82 Altered mental status, unspecified; I10 Essential (primary) hypertension; R47.81 Slurred speech; E11.65 Type 2 diabetes mellitus with hyperglycemia; E83.42 Hypomagnesemia